=== PATIENT | male | born 1950 | race Caucasian/White ===

== ENCOUNTER 2022-04-02 16:46 | Emergency (ER) | payer OTHER ==
[~2022-04-02] VITALS: Ht 177.8 cm; Wt 67.8 kg
== END 2022-04-02 18:50 | disposition home or self-care (01) ==
LOC: ED 16:46 → EDBD 16:47 → ED 18:50
DX: F10.129 Alcohol abuse with intoxication, unspecified (principal)
CPT/HCPCS: 99284